=== PATIENT | female | born 2000 | race Caucasian/White ===

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

== ENCOUNTER 2019-02-25 10:45 | Emergency (ER) | payer BC ==
[2019-02-25] MEDS ORDERED: Ondansetron 4 MG Tab.DIS PO ONE (11:11)
[2019-02-25] MEDS ORDERED: Sucralfate Suspension 1 GM/10 ML Cup PO ONE (11:11)
--- NOTE | 2019-02-25 13:45 | EDM.PDOC ---
ED HPI GENERAL MEDICAL PROBLEM - General Chief Complaint: RFP WRITER Problem Stated Complaint: STOMACH Time Seen by Provider: 02/25/19 13:45 Source of Information: Reports: Patient History Limitations: Reports: No Limitations - History of Present Illness INITIAL COMMENTS - FREE TEXT/NARRATIVE: Patient is a 18-year-old female with a history of being 36 weeks patient is here complaining of nausea and vomiting. Duration of symptoms have been during the entire . Patient is been instructed to take Zofran but has been noncompliant with concerns about defects. Patient states the symptoms worsened over the past few days. Patient denies any fevers, chills , diarrhea, abdominal pain. Patient does report some burning in her epigastric region and into her throat. 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 In addition to that documented in the HPI above, the additional ROS was obtained : Constitutional: Denies fevers or chills Eyes: Denies vision changes ENMT: Denies sore throat CV: Denies chest pain Resp: Denies SOB GI: Per HPI : Denies painful urination MSK: Denies recent trauma Skin: Denies new rashes Neuro: Denies new numbness or tingling or weakness Endocrine: Denies unexpected weight loss Heme: Denies bleeding disorders I have reviewed the triage vital signs Const: Well nourished, well developed, appears stated age Eyes: PERRL, no conjunctival injection HENT: NCAT, Neck supple without meningismus . Moist mucous membranes CV: RRR, Warm, well-perfused extremities RESP: CTAB, Unlabored respiratory effort GI: Uterine fundus palpated subxiphoid. Soft nontender abdomen non-distended, no masses MSK: No gross deformities appreciated Skin: Warm, dry. 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 Sensation and motor function of extremities grossly intact. Psych: Appropriate mood and affect Assessment and plan Patient is a 18-year-old female presenting with nausea vomiting during . Patient will receive oral medications as she does not geared to be clinically dehydrated and has a normal physical exam. Patient will undergo urinalysis to check for evidence of dehydration and for presence of ketones. After evaluation, patient is tolerating some p.o. and her urine is negative for evidence of dehydration or ketonuria. Case discussed with RFP WRITER who agreed with plan about following up tomorrow in their clinic. Patient was urged to take Zofran as needed for nausea. - Related Data Allergies Allergy/AdvReac Type Severity Reaction Status Date / Time No Known Allergies Allergy Verified 03/30/17 20:47 Home Meds: Home Meds Nitrofurantoin Macrocrystal [Nitrofurantoin] 100 mg PO BID #6 capsule 02/25/19 [ Rx] raNITIdine 150 mg PO ONETIME #30 cap 02/25/19 [Rx] Past Medical History - Past Health History Medical/Surgical History: Denies Medical/Surgical History RFP WRITER History: Reports: Social & Family History - Family History Family Medical History: Noncontributory - Tobacco Use Smoking Status *Q: Never Smoker - Caffeine Use Caffeine Use: Reports: Coffee, Energy Drinks, Soda - Recreational Drug Use Recreational Drug Use: No ED ROS GENERAL - Review of Systems Review Of Systems: See Below ED EXAM, GI/ABD - Physical Exam Exam: See Below Course - Vital Signs Last Recorded V/S: Last Vital Signs Temp 36.9 C 02/25/19 13:23 Pulse 88 02/25/19 13:23 Resp 18 02/25/19 10:54 BP 124/79 02/25/19 13:23 Pulse Ox 98 02/25/19 13:23 - Orders/Labs/Meds Orders: Active Orders 24 hr Category Date Time Status CULTURE URINE [RM] Stat Lab 02/25/19 12:37 Received Labs: Laboratory Tests 02/25/19 Range/Units 12:37 Urine Color YELLOW Urine Appearance CLEAR Urine pH 7.0 (5.0-8.0) Ur Specific [place] 1.015 (1.001-1.035) Urine Protein NEGATIVE (NEGATIVE) mg/dL Urine Glucose (UA) NEGATIVE (NEGATIVE) mg/dL Urine Ketones NEGATIVE (NEGATIVE) mg/dL Urine Occult Blood NEGATIVE (NEGATIVE) Urine Nitrite NEGATIVE (NEGATIVE) Urine Bilirubin NEGATIVE (NEGATIVE) Urine Urobilinogen 0.2 (<2.0) EU/dL Ur Leukocyte Esterase TRACE H (NEGATIVE) Urine RBC 0-1 (0-2/HPF) Urine WBC 0-1 (0-5/HPF) Ur Epithelial Cells FEW (NONE-FEW) Urine Bacteria FEW (NEGATIVE) Meds: Medications Discontinued Medications Generic Name Dose Route Start Last Admin Trade Name Freq PRN Reason Stop Dose Admin Ondansetron HCl 4 mg 02/25/19 11:11 02/25/19 11:42 Zofran Odt PO 02/25/19 11:12 4 mg ONETIME ONE Administration Sucralfate 1 gm 02/25/19 11:11 02/25/19 11:42 Carafate PO 02/25/19 11:12 1 gm ONETIME ONE Administration Departure - Departure Time of Disposition: 13:50 Disposition: Home, Self-Care 01 Clinical Impression: Nausea and vomiting during - Discharge Information Prescriptions: Nitrofurantoin Macrocrystal [Nitrofurantoin] 100 mg PO BID #6 capsule raNITIdine 150 mg PO ONETIME #30 cap Instructions: Nausea and Vomiting, Adult Referrals: Amado Britton MD [Primary Care Provider] - Forms: ED Department Discharge Sepsis Event Note - Evaluation Sepsis Screening Result: No Definite Risk - Focused Exam Vital Signs: Vital Signs Temp Pulse Resp BP Pulse Ox 02/25/19 13:23 36.9 C 88 124/79 98 02/25/19 10:54 36.0 C 90 18 124/74 98 Date Exam was Performed: 02/25/19 Time Exam was Performed: 17:53 - My Orders Last 24 Hours: My Active Orders 02/25/19 12:37 CULTURE URINE [RM] Stat - Assessment/Plan Last 24 Hours: My Active Orders 02/25/19 12:37 CULTURE URINE [RM] Stat
== END 2019-02-25 14:09 | disposition home or self-care (01) ==
LOC: MW.ED 10:45
DX: O21.2 Late vomiting of pregnancy (principal); Z3A.36 36 weeks gestation of pregnancy
CPT/HCPCS: 81001; 87086; 99284; A9270; 99283

== ENCOUNTER 2019-03-05 10:20 | Inpatient (IN) | payer BC ==
[2019-03-05] MEDS ORDERED: Carboprost Tromethamine 250 MCG/1 ML Amp IM PRN (13:45)
[2019-03-05] MEDS ORDERED: Tranexamic Acid 1,000 MG in Sodium Chloride 0.9% 100 ML IV PRN (13:45)
[2019-03-05] MEDS ORDERED: Methylergonovine 0.2 MG/1 ML Amp IM PRN (13:45)
[2019-03-05] MEDS ORDERED: Sodium Chloride 0.9% 10 ML Syringe FLUSH PRN (13:45)
[2019-03-05] MEDS ORDERED: Water For Irrigation,Sterile 1,000 ML Container IRR PRN (13:45)
[2019-03-05] MEDS ORDERED: Butorphanol 1 MG/ML SDV IVPUSH PRN (13:45)
[2019-03-05] MEDS ORDERED: Lidocaine 1% 50 ML MDV INJECT PRN (13:45)
[2019-03-05] MEDS ORDERED: Sodium Chloride 0.9% 2.5 ML Syringe FLUSH PRN (13:45)
[2019-03-05] MEDS ORDERED: Lactated Ringers 1,000 ML IV SCH (13:45)
[2019-03-05] MEDS ORDERED: Oxytocin/0.9 % Sodium Chloride 30 UNIT/500 ML BAG IV SCH (13:45)
[2019-03-05] MEDS ORDERED: Misoprostol 200 MCG Tab PO PRN (13:45)
[2019-03-05] MEDS ORDERED: Sodium Chloride 0.9% 10 ML SDV IV PRN (13:45)
[2019-03-05] MEDS ORDERED: Nalbuphine 10 MG/1 ML Vial IVPUSH PRN (13:45)
[2019-03-05] MEDS ORDERED: Ampicillin 2 GM in Sodium Chloride 0.9% 100 ML IV ONE (14:00)
[2019-03-05] MEDS ORDERED: fentaNYL 100 MCG/2 ML SDV ONE (14:27)
[2019-03-05] MEDS ORDERED: Ropivacaine HCl/PF 100 ML ONE (14:27)
--- NOTE | 2019-03-05 14:47 | PCM.PREANE ---
Preanesthetic Assessment - Anesthesia/Transfusion/Family Hx Anesthesia History: No Prior Anesthesia Family History of Anesthesia Reaction: No - Physical Assessment NPO Status Date: 03/05/19 NPO Status Time: 09:00 Height: 1.68 m Weight: 71.668 kg ASA Class: 1 - Lab Values: Laboratory Last Values WBC 20.09 K/uL (4.0-11.0) H 03/05/19 14:23 RBC 4.04 M/uL (4.30-5.90) L 03/05/19 14:23 Hgb 10.4 g/dL (12.0-16.0) L 03/05/19 14:23 Hct 31.8 % (36.0-46.0) L 03/05/19 14:23 MCV 78.7 fL (80.0-98.0) L 03/05/19 14:23 MCH 25.7 pg (27.0-32.0) L 03/05/19 14:23 MCHC 32.7 g/dL (31.0-37.0) 03/05/19 14:23 RDW Std Deviation 39.7 fl (28.0-62.0) 03/05/19 14:23 RDW Coeff of Rosy 14 % (11.0-15.0) 03/05/19 14:23 Plt Count 256 K/uL (150-400) 03/05/19 14:23 MPV 10.50 fL (7.40-12.00) 03/05/19 14:23 Nucleated RBC % 0.0 /100WBC 03/05/19 14: Nucleated RBCs # 0 K/uL 03/05/19 14:23 Urine Color YELLOW 03/05/19 10:45 Urine Appearance HAZY 03/05/19 10:45 Urine pH 5.5 (5.0-8.0) 03/05/19 10:45 Ur Specific [place] 1.010 (1.001-1.035) 03/05/19 10:45 Urine Protein NEGATIVE mg/dL (NEGATIVE) 03/05/19 10:45 Urine Glucose (UA) NEGATIVE mg/dL (NEGATIVE) 03/05/19 10:45 Urine Ketones NEGATIVE mg/dL (NEGATIVE) 03/05/19 10:45 Urine Occult Blood NEGATIVE (NEGATIVE) 03/05/19 10:45 Urine Nitrite NEGATIVE (NEGATIVE) 03/05/19 10:45 Urine Bilirubin NEGATIVE (NEGATIVE) 03/05/19 10:45 Urine Urobilinogen 0.2 EU/dL (<2.0) 03/05/19 10:45 Ur Leukocyte Esterase MODERATE (NEGATIVE) H 03/05/19 10:45 Membrane Rupture NEGATIVE 03/05/19 10:40 - Allergies Allergies/Adverse Reactions: Allergies Allergy/AdvReac Type Severity Reaction Status Date / Time No Known Allergies Allergy Verified 03/05/19 10:48 - Acknowledgements Anesthesia Type Planned: Epidural Pt an Appropriate Candidate for the Planned Anesthesia: Yes Alternatives and Risks of Anesthesia Discussed w Pt/Guardian: Yes Pt/Guardian Understands and Agrees with Anesthesia Plan: Yes PreAnesthesia Questionnaire - Past Health History Medical/Surgical History: Denies Medical/Surgical History [employer] History: Reports: - SUBSTANCE USE Smoking Status *Q: Former Smoker Tobacco Use Within Last Twelve Months: Cigarettes Second Hand Smoke Exposure: No Recreational Drug Use History: No - HOME MEDS Home Medications: Home Meds Nitrofurantoin Macrocrystal [Nitrofurantoin] 100 mg PO BID #6 capsule 02/25/19 [ Rx] raNITIdine 150 mg PO ONETIME #30 cap 02/25/19 [Rx] Ondansetron [Zofran ODT] 4 mg PO Q6H PRN 03/05/19 [History] - CURRENT (IN HOUSE) MEDS Current Meds: Current Medications Butorphanol Tartrate (Stadol) 1 mg IVPUSH Q1H PRN PRN Reason: Pain Last Admin: 03/05/19 14:24 Dose: 1 mg Carboprost Tromethamine (Hemabate Ds) 250 mcg IM ASDIRECTED PRN PRN Reason: Post Hemorrhage Lactated Ringer's (Ringers, Lactated) 1,000 mls @ 150 mls/hr IV ASDIRECTED RICARDO Last Admin: 03/05/19 14:10 Dose: 150 mls/hr Oxytocin/Sodium Chloride (Oxytocin 30 Unit/500 Ml-Ns) 30 unit in 500 mls @ 500 mls/hr IV TITRATE RICARDO Tranexamic Acid 1,000 mg/ (Sodium Chloride) 110 mls @ 660 mls/hr IV ONETIME PRN PRN Reason: Bleeding Lidocaine HCl (Xylocaine 1%) 50 ml INJECT ONETIME PRN PRN Reason: Laceration repair Methylergonovine Maleate (Methergine) 0.2 mg IM ASDIRECTED PRN PRN Reason: Post Hemorrhage Misoprostol (Cytotec) 200 mcg PO ONETIME PRN PRN Reason: Post Hemorrhage Nalbuphine HCl (Nubain) 10 mg IVPUSH Q1H PRN PRN Reason: Pain (severe 7-10) Sodium Chloride (Saline Flush) 10 ml FLUSH ASDIRECTED PRN PRN Reason: Keep Vein Open Sodium Chloride (Saline Flush) 2.5 ml FLUSH ASDIRECTED PRN PRN Reason: Keep Vein Open Sodium Chloride (Normal Saline) 10 ml IV ASDIRECTED PRN PRN Reason: IV Use Sterile Water (Sterile Water For Irrigation) 1,000 ml IRR ASDIRECTED PRN PRN Reason: delivery Discontinued Medications Fentanyl (Sublimaze) Confirm Administered Dose 100 mcg .ROUTE .STK-MED ONE Stop: 03/05/19 14:28 Ampicillin Sodium 2 gm/ Sodium (Chloride) 100 mls @ 200 mls/hr IV ONETIME ONE Stop: 03/05/19 14:29 Last Admin: 03/05/19 14:10 Dose: 200 mls/hr Ropivacaine (Naropin 0.2%) Confirm Administered Dose 100 mls @ as directed .ROUTE .STK-MED ONE Stop: 03/05/19 14:28
--- NOTE | 2019-03-05 14:51 | PCM.PRNOTE ---
- Free Text/Narrative Note: Anes Note Patient requests epidural for L&D> Sitting position, level L3-L4 midline approach. Sterile technique. Chloraprep scrub to lumbar area. Sterile fenestrated drape applied. Epidural space easily achieved single attempt with ease using MELINDA technique. MELINDA at 3 cm. Cath threaded 5 cm with ease. Cath secured at 9 cm at skin usign sterile clear adhesive dressing. 1440 Test 3 cc 1.5% lido with epi negative. 1443 Load 10 cc 0.2% ropivicaine with 1 mcg/cc fentanyl in slow divided doses. 1447 pumps started with 90 cc same solution. Rate is 8 cc hr with 6 cc q 20 min prn bolus. Angela well. Time with patient [id number] Mark Rasmussen CRNA
--- NOTE | 2019-03-05 15:44 | PCM.DEL ---
L & D Note - General Info Date of Service: 03/05/19 Mother's Due Date: 03/27/19 - Delivery Note Delivery Outcome: Livebirth Infant Delivery Method: Spontaneous Vaginal Delivery-Single Presentation: Left Occiput Anterior (JYOTHI) Nuchal Cord: None Anesthesia Type: Epidural Laceration: Labial Placenta: Intact Cord: 3 Vessels Estimated Blood Loss: 200 Resuscitation Needed: No Score 1 min: 8 Score 5 min: 9 Delivery Comments (Free Text/Narrative):: Live female delivered at 322pm , 8/9 , weight 2480g - General Info Date of Service: 03/05/19 - Patient Data Weight - Most Recent: 71.668 kg Lab Results Last 24 Hours: Laboratory Results - last 24 hr 03/05/19 03/05/19 03/05/19 Range/Units 10:40 10:45 14:23 WBC 20.09 H (4.0-11.0) K/uL RBC 4.04 L (4.30-5.90) M/uL Hgb 10.4 L (12.0-16.0) g/dL Hct 31.8 L (36.0-46.0) % MCV 78.7 L (80.0-98.0) fL MCH 25.7 L (27.0-32.0) pg MCHC 32.7 (31.0-37.0) g/dL RDW Std Deviation 39.7 (28.0-62.0) fl RDW Coeff of Rosy 14 (11.0-15.0) % Plt Count 256 (150-400) K/uL MPV 10.50 (7.40-12.00) fL Nucleated RBC % 0.0 /100WBC Nucleated RBCs # 0 K/uL Urine Color YELLOW Urine Appearance HAZY Urine pH 5.5 (5.0-8.0) Ur Specific [place] 1.010 (1.001-1.035) Urine Protein NEGATIVE (NEGATIVE) mg/dL Urine Glucose (UA) NEGATIVE (NEGATIVE) mg/dL Urine Ketones NEGATIVE (NEGATIVE) mg/dL Urine Occult Blood NEGATIVE (NEGATIVE) Urine Nitrite NEGATIVE (NEGATIVE) Urine Bilirubin NEGATIVE (NEGATIVE) Urine Urobilinogen 0.2 (<2.0) EU/dL Ur Leukocyte Esterase MODERATE H (NEGATIVE) Membrane Rupture NEGATIVE Med Orders - Current: Current Medications Butorphanol Tartrate (Stadol) 1 mg IVPUSH Q1H PRN PRN Reason: Pain Last Admin: 03/05/19 14:24 Dose: 1 mg Carboprost Tromethamine (Hemabate Ds) 250 mcg IM ASDIRECTED PRN PRN Reason: Post Hemorrhage Lactated Ringer's (Ringers, Lactated) 1,000 mls @ 150 mls/hr IV ASDIRECTED RICARDO Last Admin: 03/05/19 14:10 Dose: 150 mls/hr Oxytocin/Sodium Chloride (Oxytocin 30 Unit/500 Ml-Ns) 30 unit in 500 mls @ 500 mls/hr IV TITRATE RICARDO Tranexamic Acid 1,000 mg/ (Sodium Chloride) 110 mls @ 660 mls/hr IV ONETIME PRN PRN Reason: Bleeding Lidocaine HCl (Xylocaine 1%) 50 ml INJECT ONETIME PRN PRN Reason: Laceration repair Methylergonovine Maleate (Methergine) 0.2 mg IM ASDIRECTED PRN PRN Reason: Post Hemorrhage Misoprostol (Cytotec) 200 mcg PO ONETIME PRN PRN Reason: Post Hemorrhage Nalbuphine HCl (Nubain) 10 mg IVPUSH Q1H PRN PRN Reason: Pain (severe 7-10) Sodium Chloride (Saline Flush) 10 ml FLUSH ASDIRECTED PRN PRN Reason: Keep Vein Open Sodium Chloride (Saline Flush) 2.5 ml FLUSH ASDIRECTED PRN PRN Reason: Keep Vein Open Sodium Chloride (Normal Saline) 10 ml IV ASDIRECTED PRN PRN Reason: IV Use Sterile Water (Sterile Water For Irrigation) 1,000 ml IRR ASDIRECTED PRN PRN Reason: delivery Discontinued Medications Fentanyl (Sublimaze) Confirm Administered Dose 100 mcg .ROUTE .[employer]Workings-MED ONE Stop: 03/05/19 14:28 Ampicillin Sodium 2 gm/ Sodium (Chloride) 100 mls @ 200 mls/hr IV ONETIME ONE Stop: 03/05/19 14:29 Last Admin: 03/05/19 14:10 Dose: 200 mls/hr Ropivacaine (Naropin 0.2%) Confirm Administered Dose 100 mls @ as directed .ROUTE .InnerWorkings-MED ONE Stop: 03/05/19 14:28 - Problem List & Annotations (1) Vaginal delivery SNOMED Code(s): 926544374 Code(s): O80 - ENCOUNTER FOR FULL-TERM UNCOMPLICATED DELIVERY Status: Acute Current Visit: Yes - Problem List Review Problem List Initiated/Reviewed/Updated: Yes - My Orders Last 24 Hours: My Active Orders 03/05/19 10:49 Patient Status [ADT] Routine Non Stress Test [RC] PER UNIT ROUTINE Up ad Janina [RC] ASDIRECTED Vaginal Exam [RC] Click to Edit Vital Signs [RC] PER UNIT ROUTINE Resuscitation Status Routine 03/05/19 13:45 Butorphanol [Stadol] 1 mg IVPUSH Q1H PRN Carboprost Tromethamine [Hemabate DS] 250 mcg IM ASDIRECTED PRN Lactated Ringers [Ringers, Lactated] 1,000 ml IV ASDIRECTED Lidocaine 1% [Xylocaine 1%] 50 ml INJECT ONETIME PRN Methylergonovine [Methergine] 0.2 mg IM ASDIRECTED PRN Nalbuphine [Nubain] 10 mg IVPUSH Q1H PRN Oxytocin/0.9 % Sodium Chloride [Oxytocin 30 Unit/500 ML-NS] 30 unit in 500 ml IV TITRATE Sodium Chloride 0.9% [Normal Saline] 10 ml IV ASDIRECTED PRN Sodium Chloride 0.9% [Saline Flush] 10 ml FLUSH ASDIRECTED PRN Sodium Chloride 0.9% [Saline Flush] 2.5 ml FLUSH ASDIRECTED PRN Tranexamic Acid [Cyklokapron] 1,000 mg Sodium Chloride 0.9% [Normal Saline] 100 ml IV ONETIME Water For Irrigation,Sterile [Sterile Water for Irrigation] 1,000 ml IRR ASDIRECTED PRN miSOPROStoL [Cytotec] 200 mcg PO ONETIME PRN 03/05/19 13:46 Patient Status [ADT] Routine Heart Tones [RC] CONTINUOUS May Shower [RC] ASDIRECTED Notify Provider [RC] PRN Up ad Janina [RC] ASDIRECTED Vaginal Exam [RC] PRN Vital Signs [RC] PER UNIT ROUTINE Scalp Electrode [WOMSER] Per Unit Routine Peripheral IV Insertion Adult [OM.PC] Routine 03/05/19 14:23 RPR (SYPHILIS SERO) W/ RFLX [REF] Routine TYPE AND SCREEN [BBK] Routine
[2019-03-05] MEDS ORDERED: Ibuprofen 800 MG Tab PO PRN (15:45)
[2019-03-05] MEDS ORDERED: Ibuprofen 400 MG Tab PO PRN (15:45)
[2019-03-05] MEDS ORDERED: oxyCODONE 5 MG Tab PO PRN (15:45)
[2019-03-05] MEDS ORDERED: Benzocaine/Menthol 20%-0.5% Spray 78 GM Cannister TOP PRN (15:45)
[2019-03-05] MEDS ORDERED: Docusate Sodium 100 MG Cap PO PRN (15:45)
[2019-03-05] MEDS ORDERED: Witch Hazel Medicated Pads 40/Jar TOP PRN (15:45)
[2019-03-05] MEDS ORDERED: Bisacodyl 10 MG Supp RECTAL PRN (15:45)
[2019-03-05] MEDS ORDERED: Acetaminophen 500 MG Tab PO PRN ×2 (15:45)
[2019-03-05] MEDS ORDERED: Lanolin 100% Cream 7 GM Tube TOP PRN (15:45)
[2019-03-05] MEDS ORDERED: Ampicillin/Sulbactam Na 3 GM in Sodium Chloride 0.9% 100 ML IV ONE (17:00)
--- NOTE | 2019-03-06 08:43 | PCM48HPAN ---
Post Anesthesia Note - EVALUATION WITHIN 48HRS OF ANESTHETIC Vital Signs in Normal Range: Yes Patient Participated in Evaluation: Yes Respiratory Function Stable: Yes Airway Patent: Yes Cardiovascular Function Stable: Yes Hydration Status Stable: Yes Pain Control Satisfactory: Yes Nausea and Vomiting Control Satisfactory: Yes Mental Status Recovered: Yes Vital Signs: Last Vital Signs Temp 36.8 C 03/06/19 04:15 Pulse 98 03/06/19 04:15 Resp 18 03/06/19 04:15 BP 118/75 03/06/19 04:15 Pulse Ox 96 03/06/19 04:15
--- NOTE | 2019-03-06 18:08 | OR ---
SURGEON: VINCE HAWTHORNE DATE OF PROCEDURE: 03/05/2019 PREOPERATIVE DIAGNOSIS: A 18-year-old, G1, P0, at 36 weeks 6 days in early labor. POSTOPERATIVE DIAGNOSIS: A 18-year-old, G1, P0, at 36 weeks 6 days in early labor. PROCEDURE: Normal spontaneous vaginal delivery and manual removal of the placenta. IV FLUID: Pitocin running. ANESTHESIA: Epidural. NOTES AND FINDINGS: A live female delivered at 3:22 p.m. scores 8 and 9. Weight is 2480 g. BRIEF HISTORY: A 18-year-old, G1, P0, at 36 weeks 6 days. Low-risk patient who came in complaining of leakage of fluid. She was noted to have AmniSure negative. However, she was noted to be gabriel, and she made change from about 3 cm to 5, then became fully dilated. She requested an epidural which she received When the patient was fully dilated, she was encouraged to push. DESCRIPTION OF PROCEDURE: With good pushing effort, she delivered the head, followed subsequently by the anterior and posterior shoulder. The body of the was delivered. was placed on maternal abdomen. Delayed cord clamping was observed. Cord was clamped and cut. The cord blood gases were obtained. The placenta was attempted to be delivered, however, there was a slight tear in the cord, so a manual removal was proceeded with without any difficulty. After the procedure, the perineum was inspected. A small right labial abrasion was noted, which was hemostatic. The uterus was noted to be well contracted. The lochia was normal. All instrument and pad counts were correct x2. The patient tolerated the procedure well and was left in the Labor and Delivery Suite in stable condition. LOKESH / GERTRUDE /[id number] TANIA
--- NOTE | 2019-03-06 18:56 | PCM.PNPP ---
- General Info Date of Service: 03/06/19 Subjective Update: Patient seen at bedside , she denies any complains She is ambulating and voiding She is and pumping Normal lochia Functional Status: Reports: Pain Controlled, Tolerating Diet, Ambulating, Urinating - Review of Systems General: Reports: No Symptoms HEENT: Reports: No Symptoms Pulmonary: Reports: No Symptoms Cardiovascular: Reports: No Symptoms Gastrointestinal: Reports: No Symptoms Genitourinary: Reports: No Symptoms Musculoskeletal: Reports: No Symptoms Skin: Reports: No Symptoms Neurological: Reports: No Symptoms Psychiatric: Reports: No Symptoms - General Info Date of Service: 03/06/19 - Patient Data Vital Signs - Most Recent: Last Vital Signs Temp 36.3 C 03/06/19 16:56 Pulse 104 H 03/06/19 16:56 Resp 18 03/06/19 16:56 BP 114/79 03/06/19 16:56 Pulse Ox 97 03/06/19 16:56 Weight - Most Recent: 71.668 kg Lab Results - Last 24 Hours: Laboratory Results - last 24 hr 03/05/19 03/05/19 03/06/19 Range/Units 15:22 15:22 05:54 Hgb 10.2 L (12.0-16.0) g/dL Hct 31.6 L (36.0-46.0) % Cord ABG pH 7.167 L (7.18-7.38) Cord ABG Base Excess -8 (-10--2) Cord VBG pH 7.310 (7.25-7.45) Cord VBG Base Excess -8 (-10--2) Med Orders - Current: Current Medications Acetaminophen (Tylenol Extra Strength) 500 mg PO Q4H PRN PRN Reason: Pain Acetaminophen (Tylenol Extra Strength) 1,000 mg PO Q4H PRN PRN Reason: Pain Benzocaine/Menthol (Dermoplast Pain Relief 20%-0.5% [place]) 78 gm TOP ASDIRECTED PRN PRN Reason: Perineal Comfort Measure Bisacodyl (Dulcolax) 10 mg RECTAL ONETIME PRN PRN Reason: Constipation Butorphanol Tartrate (Stadol) 1 mg IVPUSH Q1H PRN PRN Reason: Pain Last Admin: 03/05/19 14:24 Dose: 1 mg Carboprost Tromethamine (Hemabate Ds) 250 mcg IM ASDIRECTED PRN PRN Reason: Post Hemorrhage Docusate Sodium (Colace) 100 mg PO BID PRN PRN Reason: Constipation Emollient Ointment (Lansinoh Hpa) 0 gm TOP ASDIRECTED PRN PRN Reason: Sore Nipples Lactated Ringer's (Ringers, Lactated) 1,000 mls @ 150 mls/hr IV ASDIRECTED [facility] Last Admin: 03/05/19 14:10 Dose: 150 mls/hr Oxytocin/Sodium Chloride (Oxytocin 30 Unit/500 Ml-Ns) 30 unit in 500 mls @ 500 mls/hr IV TITRATE [facility] Last Admin: 03/05/19 15:47 Dose: 500 mls/hr Tranexamic Acid 1,000 mg/ (Sodium Chloride) 110 mls @ 660 mls/hr IV ONETIME PRN PRN Reason: Bleeding Ibuprofen (Motrin) 400 mg PO Q4H PRN PRN Reason: Pain Ibuprofen (Motrin) 800 mg PO Q6H PRN PRN Reason: Pain Lidocaine HCl (Xylocaine 1%) 50 ml INJECT ONETIME PRN PRN Reason: Laceration repair Methylergonovine Maleate (Methergine) 0.2 mg IM ASDIRECTED PRN PRN Reason: Post Hemorrhage Misoprostol (Cytotec) 200 mcg PO ONETIME PRN PRN Reason: Post Hemorrhage Nalbuphine HCl (Nubain) 10 mg IVPUSH Q1H PRN PRN Reason: Pain (severe 7-10) Oxycodone HCl (Oxycodone) 5 mg PO Q2H PRN PRN Reason: Pain Sodium Chloride (Saline Flush) 10 ml FLUSH ASDIRECTED PRN PRN Reason: Keep Vein Open Sodium Chloride (Saline Flush) 2.5 ml FLUSH ASDIRECTED PRN PRN Reason: Keep Vein Open Sodium Chloride (Normal Saline) 10 ml IV ASDIRECTED PRN PRN Reason: IV Use Sterile Water (Sterile Water For Irrigation) 1,000 ml IRR ASDIRECTED PRN PRN Reason: delivery Last Admin: 03/05/19 15:47 Dose: 1,000 ml Witch Petty (Tucks) 1 pad TOP ASDIRECTED PRN PRN Reason: comfort care Discontinued Medications Fentanyl (Sublimaze) Confirm Administered Dose 100 mcg .ROUTE .STK-MED ONE Stop: 03/05/19 14:28 Ampicillin Sodium 2 gm/ Sodium (Chloride) 100 mls @ 200 mls/hr IV ONETIME ONE Stop: 03/05/19 14:29 Last Admin: 03/05/19 14:10 Dose: 200 mls/hr Ropivacaine (Naropin 0.2%) Confirm Administered Dose 100 mls @ as directed .ROUTE .STK-MED ONE Stop: 03/05/19 14:28 Ampicillin Sodium/Sulbactam (Sodium 3 gm/ Sodium Chloride) 100 mls @ 200 mls/ hr IV ONETIME ONE Stop: 03/05/19 17:29 Last Admin: 03/05/19 17:15 Dose: 200 mls/hr - Interaction Support Person: Significant Other - Recovery Exam Fundal Tone: Firm Fundal Level: 1 Fingerbreadths Below Umbilicus Fundal Placement: Midline Lochia Amount: Scant Lochia Color: Rubra/Red Perineum Description: Intact, Minimal Bruising/Swelling Episiotomy/Laceration: None Bladder Status: Voiding Urinary Elimination: Voided - Exam General: Alert, Oriented HEENT: Pupils Equal Lungs: Clear to Auscultation Cardiovascular: Regular Rate GI/Abdominal Exam: Normal Bowel Sounds Extremities: Normal Inspection Skin: Warm Wound/Incisions: Healing Well - Problem List & Annotations (1) Vaginal delivery SNOMED Code(s): 708410625 Code(s): O80 - ENCOUNTER FOR FULL-TERM UNCOMPLICATED DELIVERY Status: Acute Current Visit: Yes - Problem List Review Problem List Initiated/Reviewed/Updated: Yes - Assessment Assessment:: 18yo P1 s/p delivery with Manual removal of placenta , PPD1 Ambulating . voiding Normal lochia and pumping, on IVF fluid - Plan Plan:: Routine DIscharge home tomorrow
--- NOTE | 2019-03-07 17:14 | PCM.PNPP ---
- General Info Date of Service: 03/07/19 Subjective Update: Patient seen in nursery, she denies any complains She is ambulating and voiding She is and pumping Normal lochia Functional Status: Reports: Pain Controlled, Tolerating Diet, Ambulating, Urinating - Review of Systems General: Reports: No Symptoms HEENT: Reports: No Symptoms Pulmonary: Reports: No Symptoms Cardiovascular: Reports: No Symptoms Gastrointestinal: Reports: No Symptoms Genitourinary: Reports: No Symptoms Musculoskeletal: Reports: No Symptoms Skin: Reports: No Symptoms Neurological: Reports: No Symptoms Psychiatric: Reports: No Symptoms - Patient Data Vital Signs - Most Recent: Last Vital Signs Temp 36.6 C 03/07/19 08:15 Pulse 91 03/07/19 08:15 Resp 18 03/07/19 08:15 BP 124/76 03/07/19 08:15 Pulse Ox 99 03/07/19 08:15 Weight - Most Recent: 71.668 kg Lab Results - Last 24 Hours: Laboratory Results - last 24 hr 03/05/19 03/05/19 03/05/19 Range/Units 14:23 15:22 15:22 Cord ABG pH 7.167 L (7.18-7.38) Cord ABG Base Excess -8 (-10--2) Cord VBG pH 7.310 (7.25-7.45) Cord VBG Base Excess -8 (-10--2) RPR Non-Reac (Non-Reac) Med Orders - Current: Current Medications Acetaminophen (Tylenol Extra Strength) 500 mg PO Q4H PRN PRN Reason: Pain Acetaminophen (Tylenol Extra Strength) 1,000 mg PO Q4H PRN PRN Reason: Pain Benzocaine/Menthol (Dermoplast Pain Relief 20%-0.5% [place]) 78 gm TOP ASDIRECTED PRN PRN Reason: Perineal Comfort Measure Bisacodyl (Dulcolax) 10 mg RECTAL ONETIME PRN PRN Reason: Constipation Carboprost Tromethamine (Hemabate Ds) 250 mcg IM ASDIRECTED PRN PRN Reason: Post Hemorrhage Docusate Sodium (Colace) 100 mg PO BID PRN PRN Reason: Constipation Emollient Ointment (Lansinoh Hpa) 0 gm TOP ASDIRECTED PRN PRN Reason: Sore Nipples Tranexamic Acid 1,000 mg/ (Sodium Chloride) 110 mls @ 660 mls/hr IV ONETIME PRN PRN Reason: Bleeding Ibuprofen (Motrin) 400 mg PO Q4H PRN PRN Reason: Pain Last Admin: 03/07/19 11:38 Dose: 400 mg Ibuprofen (Motrin) 800 mg PO Q6H PRN PRN Reason: Pain Methylergonovine Maleate (Methergine) 0.2 mg IM ASDIRECTED PRN PRN Reason: Post Hemorrhage Misoprostol (Cytotec) 200 mcg PO ONETIME PRN PRN Reason: Post Hemorrhage Oxycodone HCl (Oxycodone) 5 mg PO Q2H PRN PRN Reason: Pain Sodium Chloride (Saline Flush) 10 ml FLUSH ASDIRECTED PRN PRN Reason: Keep Vein Open Sodium Chloride (Saline Flush) 2.5 ml FLUSH ASDIRECTED PRN PRN Reason: Keep Vein Open Sodium Chloride (Normal Saline) 10 ml IV ASDIRECTED PRN PRN Reason: IV Use Witch Petty (Tucks) 1 pad TOP ASDIRECTED PRN PRN Reason: comfort care Discontinued Medications Butorphanol Tartrate (Stadol) 1 mg IVPUSH Q1H PRN PRN Reason: Pain Last Admin: 03/05/19 14:24 Dose: 1 mg Fentanyl (Sublimaze) Confirm Administered Dose 100 mcg .ROUTE .STK-MED ONE Stop: 03/05/19 14:28 Lactated Ringer's (Ringers, Lactated) 1,000 mls @ 150 mls/hr IV ASDIRECTED [facility] Last Admin: 03/05/19 14:10 Dose: 150 mls/hr Oxytocin/Sodium Chloride (Oxytocin 30 Unit/500 Ml-Ns) 30 unit in 500 mls @ 500 mls/hr IV TITRATE [facility] Last Admin: 03/05/19 15:47 Dose: 500 mls/hr Ampicillin Sodium 2 gm/ Sodium (Chloride) 100 mls @ 200 mls/hr IV ONETIME ONE Stop: 03/05/19 14:29 Last Admin: 03/05/19 14:10 Dose: 200 mls/hr Ropivacaine (Naropin 0.2%) Confirm Administered Dose 100 mls @ as directed .ROUTE .STK-MED ONE Stop: 03/05/19 14:28 Ampicillin Sodium/Sulbactam (Sodium 3 gm/ Sodium Chloride) 100 mls @ 200 mls/ hr IV ONETIME ONE Stop: 03/05/19 17:29 Last Admin: 03/05/19 17:15 Dose: 200 mls/hr Lidocaine HCl (Xylocaine 1%) 50 ml INJECT ONETIME PRN PRN Reason: Laceration repair Nalbuphine HCl (Nubain) 10 mg IVPUSH Q1H PRN PRN Reason: Pain (severe 7-10) Sterile Water (Sterile Water For Irrigation) 1,000 ml IRR ASDIRECTED PRN PRN Reason: delivery Last Admin: 03/05/19 15:47 Dose: 1,000 ml - Interaction Infant Disposition, : to Nursery Infant Interaction: Holding Infant Infant Feeding: Attempted ; Nursed Fair/Poor, Bottle Fed Infant Support Person: Significant Other - Recovery Exam Fundal Tone: Firm Fundal Level: 1 Fingerbreadths Below Umbilicus Fundal Placement: Midline Lochia Amount: Scant Lochia Color: Rubra/Red Other Perinuem Description: abrasion Episiotomy/Laceration: None Bladder Status: Voiding Urinary Elimination: Voided - Exam General: Alert, Oriented Neck: Supple Lungs: Clear to Auscultation, Normal Respiratory Effort Cardiovascular: Regular Rate, Regular Rhythm GI/Abdominal Exam: Soft, Non-Tender, No Distention Extremities: No Pedal Edema Skin: Warm, Dry, Intact Neurological: No New Focal Deficit Psy/Mental Status: Alert, Normal Affect, Normal Mood - Problem List & Annotations (1) Vaginal delivery SNOMED Code(s): 880051210 Code(s): O80 - ENCOUNTER FOR FULL-TERM UNCOMPLICATED DELIVERY Status: Acute Current Visit: Yes - Problem List Review Problem List Initiated/Reviewed/Updated: Yes - My Orders Last 24 Hours: My Active Orders 03/07/19 17:12 Ready for Discharge [RC] PER UNIT ROUTINE - Assessment Assessment:: 18yo P1 s/p delivery with Manual removal of placenta , PPD2 Ambulating . voiding Normal lochia and pumping, on IVF fluid - Plan Plan:: Routine Discharge home today Reviewed discharge instructions.
== END 2019-03-07 18:30 | disposition home or self-care (01) | DRG 560 ==
LOC: MW.OB 10:20 → OBSVTOIN 15:45 → MW.OB 20:04
PROVIDERS: ADMIT Obstetrics & Gynecology; ATTEND Obstetrics & Gynecology
PROC: 10E0XZZ Delivery of Products of Conception, External Approach (ICD-10-PCS; principal; 2019-03-05)
PROC: 3E0R3BZ Introduction of Anesthetic Agent into Spinal Canal, Percutaneous Approach (ICD-10-PCS; 2019-03-05)
PROC: 00HU33Z Insertion of Infusion Device into Spinal Canal, Percutaneous Approach (ICD-10-PCS; 2019-03-05)
DX: O80 Encounter for full-term uncomplicated delivery (principal); Z3A.36 36 weeks gestation of pregnancy; Z37.0 Single live birth
CPT/HCPCS: 01967; 36415; 59025; 59409; 81003; 82803; 84112; 85014; 85018; 85027; 86592; 86850; 86900; 86901; 88307; A9270-GY; J0290; J0295; J0595; J2590; J7050; J7120

== ENCOUNTER 2020-04-08 11:35 | Inpatient (IN) | payer OTHER ==
--- NOTE | 2020-04-08 12:25 | PCM.LDHP ---
L&D History of Present Illness - General Date of Service: 04/08/20 Admit Problem/Dx: Patient Status Order with Admit Dx/Problem 04/08/20 11:25 Patient Status [ADT] Routine Admission Diagnosis/Problem Admission Diagnosis/Problem Source of Information: Patient History Limitations: Reports: No Limitations - History of Present Illness Introduction:: 19 year old at 37w3d (BERNIE 04/26/2020 by 9w3d US) presented to labor and delivery with c/o vaginal bleeding. States that she had bright red vaginal bleeding with wiping at 1000 this morning and has had a small amount since that time. She was 4cm dilated at OB appointment on 04/06/2020. Notes mild back pain, no contractions or leaking fluid. Reports good movement. Has a history of delivery at 36wga and PPROM. 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: Social & Family History - Family History Family Medical History: No Pertinent Family History - Caffeine Use Caffeine Use: Reports: Soda, Tea H&P Review of Systems - Review of Systems: Review Of Systems: See Below General: Reports: No Symptoms HEENT: Reports: No Symptoms Pulmonary: Reports: No Symptoms Cardiovascular: Reports: No Symptoms Gastrointestinal: Reports: No Symptoms Genitourinary: Reports: Other (vaginal bleeding) Musculoskeletal: Reports: Back Pain Skin: Reports: No Symptoms Psychiatric: Reports: No Symptoms Neurological: Reports: No Symptoms Hematologic/Lymphatic: Reports: No Symptoms L&D Exam - Exam Exam: See Below - Vital Signs Weight: 145 lb - OB Specific Contraction Duration (sec): irregular Contraction Intensity: Mild Movement: Active Heart Tones: Present Heart Tones per Min: 130 Heart Rate (FHR) Variability: Moderate (6-25 bmp) Presentation: Vertex - Reynolds Score Reynolds Score Cervix Position: Anterior Reynolds Score Consistency: Soft Reynolds Score Effacement: >80% Reynolds Score Dilation: > 5 cm Reynolds Score Infant's Station: -2 Reynolds Score Total: 11 - Exam General: Alert Cardiovascular: Regular Rate GI/Abdominal Exam: Soft, Non-Tender Genitourinary: Normal external exam, Cervical dilitation Back Exam: Normal Inspection Extremities: Normal Inspection Skin: Warm, Dry, Intact Psychiatric: Normal Mood Problem List Initiated/Reviewed/Updated: Yes Orders Last 24hrs: Active Orders 24 hr Category Date Time Status Patient Status [ADT] Routine ADT 04/08/20 11:25 Active Non Stress Test [RC] PER UNIT ROUTINE Care 04/08/20 11:47 Active Up ad Janina [RC] ASDIRECTED Care 04/08/20 11:47 Active Vaginal Exam [RC] Click to Edit Care 04/08/20 11:47 Active Vital Signs [RC] PER UNIT ROUTINE Care 04/08/20 11:47 Active Resuscitation Status Routine Resus Stat 04/08/20 11:47 Ordered Assessment/Plan Comment:: 19 year old at 37w3d (BERNIE 04/26/2020 by 9w3d US) in spontaneous labor * Admit to labor and delivery * May receive epidural for pain management * Rh positive/rubella immune/GBS negative * COVID-19 test pending Dispo: stable. Proceed with expectant management of labor at this time.
[2020-04-08] MEDS ORDERED: Methylergonovine 0.2 MG/1 ML Amp IM PRN ×2 (12:26→19:16)
[2020-04-08] MEDS ORDERED: Sodium Chloride 0.9% 2.5 ML Syringe FLUSH PRN (12:26)
[2020-04-08] MEDS ORDERED: Carboprost Tromethamine 250 MCG/1 ML Amp IM PRN (12:26)
[2020-04-08] MEDS ORDERED: Water For Irrigation,Sterile 1,000 ML Container IRR PRN (12:26)
[2020-04-08] MEDS ORDERED: Butorphanol 1 MG/ML SDV IVPUSH PRN (12:26)
[2020-04-08] MEDS ORDERED: Sodium Chloride 0.9% 10 ML SDV IV PRN (12:26)
[2020-04-08] MEDS ORDERED: Sodium Chloride 0.9% 10 ML Syringe FLUSH PRN (12:26)
[2020-04-08] MEDS ORDERED: Misoprostol 200 MCG Tab PO PRN (12:26)
[2020-04-08] MEDS ORDERED: Tranexamic Acid 1,000 MG in Sodium Chloride 0.9% 100 ML IV PRN (12:26)
[2020-04-08] MEDS ORDERED: Nalbuphine 10 MG/1 ML Vial IVPUSH PRN (12:26)
[2020-04-08] MEDS ORDERED: Ondansetron 4 MG/2 ML SDV IVPUSH PRN (12:26)
[2020-04-08] MEDS ORDERED: Lidocaine 1% 50 ML MDV INJECT PRN (12:26)
[2020-04-08] MEDS: Lactated Ringers 1,000 ML IV SCH ×3 (12:30→15:27)
[2020-04-08] MEDS ORDERED: Oxytocin/0.9 % Sodium Chloride 30 UNIT/500 ML BAG IV SCH ×2 (12:30→18:30)
[2020-04-08] MEDS ORDERED: Ropivacaine 0.2% PF 2 MG/ML 20 ML SDV ONE (14:42)
[2020-04-08] MEDS ORDERED: fentaNYL 100 MCG/2 ML SDV ONE (14:43)
[2020-04-08] MEDS ORDERED: Ropivacaine HCl/PF 100 ML ONE (14:43)
--- NOTE | 2020-04-08 15:38 | PCM.PREANE ---
Preanesthetic Assessment - Anesthesia/Transfusion/Family Hx Anesthesia History: No Prior Anesthesia Family History of Anesthesia Reaction: No - Review of Systems General: No Symptoms Pulmonary: No Symptoms Cardiovascular: No Symptoms Gastrointestinal: No Symptoms Neurological: No Symptoms Other: Reports: None (Denies any personal or family hx of bleeding or clotting problems) - Physical Assessment Height: 1.68 m Weight: 65.771 kg ASA Class: 2 Mental Status: Alert & Oriented x3 Airway Class: Mallampati = 2 ROM/Head Extension: Full - Lab Values: Laboratory Last Values WBC 10.27 K/uL (4.0-11.0) 04/08/20 12:40 RBC 4.44 M/uL (4.30-5.90) 04/08/20 12:40 Hgb 11.9 g/dL (12.0-16.0) L 04/08/20 12:40 Hct 37.0 % (36.0-46.0) 04/08/20 12:40 MCV 83.3 fL (80.0-98.0) 04/08/20 12:40 MCH 26.8 pg (27.0-32.0) L 04/08/20 12:40 MCHC 32.2 g/dL (31.0-37.0) 04/08/20 12:40 RDW Std Deviation 65.1 fl (28.0-62.0) H 04/08/20 12:40 RDW Coeff of Rosy 22 % (11.0-15.0) H 04/08/20 12:40 Plt Count 246 K/uL (150-400) 04/08/20 12:40 MPV 10.60 fL (7.40-12.00) 04/08/20 12:40 Nucleated RBC % 0.0 /100WBC 04/08/20 12:40 Nucleated RBCs # 0 K/uL 04/08/20 12:40 SARS-CoV-2 RNA (ABHILASH) NEGATIVE (NEGATIVE) 04/08/20 13:10 Blood Type AB POSITIVE 04/08/20 12:40 Antibody Screen NEGATIVE 04/08/20 12:40 - Allergies Allergies/Adverse Reactions: Allergies Allergy/AdvReac Type Severity Reaction Status Date / Time No Known Allergies Allergy Verified 04/08/20 11:47 - Acknowledgements Anesthesia Type Planned: Epidural Pt an Appropriate Candidate for the Planned Anesthesia: Yes Alternatives and Risks of Anesthesia Discussed w Pt/Guardian: Yes Pt/Guardian Understands and Agrees with Anesthesia Plan: Yes PreAnesthesia Questionnaire - Past Health History Medical/Surgical History: Denies 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: - HOME MEDS Home Medications: Home Meds Doxylamine Succinate/Vit B6 [Bonjesta ER 20-20 mg Tablet] 1 each PO DAILY 09/22/19 [History] Vits #93/Iron Fum/FA [ Formula Tablet] 1 each PO DAILY 09/22/19 [History] - CURRENT (IN HOUSE) MEDS Current Meds: Current Medications Butorphanol Tartrate (Stadol) 1 mg IVPUSH Q1H PRN PRN Reason: Pain Carboprost Tromethamine (Hemabate Ds) 250 mcg IM ASDIRECTED PRN PRN Reason: Post Hemorrhage Lactated Ringer's (Ringers, Lactated) 1,000 mls @ 150 mls/hr IV ASDIRECTED RICARDO Last Admin: 04/08/20 15:27 Dose: 150 mls/hr Documented by: Oxytocin/Sodium Chloride (Oxytocin 30 Unit/500 Ml-Ns) 30 unit in 500 mls @ 500 mls/hr IV [facility]RATE [facility] Tranexamic Acid 1,000 mg/ (Sodium Chloride) 110 mls @ 660 mls/hr IV ONETIME PRN PRN Reason: Bleeding Lidocaine HCl (Xylocaine 1%) 50 ml INJECT ONETIME PRN PRN Reason: Laceration repair Methylergonovine Maleate (Methergine) 0.2 mg IM ASDIRECTED PRN PRN Reason: Post Hemorrhage Misoprostol (Cytotec) 200 mcg PO ONETIME PRN PRN Reason: Post Hemorrhage Nalbuphine HCl (Nubain) 10 mg IVPUSH Q1H PRN PRN Reason: Pain (severe 7-10) Ondansetron HCl (Zofran) 4 mg IVPUSH Q4H PRN PRN Reason: Nausea/Vomiting Sodium Chloride (Saline Flush) 10 ml FLUSH ASDIRECTED PRN PRN Reason: Keep Vein Open Sodium Chloride (Saline Flush) 2.5 ml FLUSH ASDIRECTED PRN PRN Reason: Keep Vein Open Sodium Chloride (Normal Saline) 10 ml IV ASDIRECTED PRN PRN Reason: IV Use Sterile Water (Sterile Water For Irrigation) 1,000 ml IRR ASDIRECTED PRN PRN Reason: delivery Discontinued Medications Fentanyl (Sublimaze) Confirm Administered Dose 200 mcg .ROUTE .STK-MED ONE Stop: 04/08/20 14:44 Ropivacaine (Naropin 0.2%) Confirm Administered Dose 100 mls @ as directed .ROUTE .STClickSquared-MED ONE Stop: 04/08/20 14:44 Ropivacaine (Naropin 0.2%) Confirm Administered Dose 20 ml .ROUTE .STClickSquared-MED ONE Stop: 04/08/20 14:43
[2020-04-08] MEDS ORDERED: Oxytocin/0.9 % Sodium Chloride 30 UNIT/500 ML BAG ONE (16:21)
[2020-04-08] MEDS ORDERED: Misoprostol 25 MCG (1/4 of 100 MCG) Tab VAG PRN (18:29)
[2020-04-08] MEDS ORDERED: Terbutaline 1 MG/ML SDV SUBCUT PRN (18:29)
[2020-04-08] MEDS ORDERED: Lidocaine 1% 50 ML MDV ONE (18:55)
[2020-04-08] MEDS ORDERED: Morphine 2 MG/ML SYRINGE IVPUSH ONE (19:02)
[2020-04-08] MEDS ORDERED: Docusate Sodium 100 MG Cap PO PRN (19:16)
[2020-04-08] MEDS ORDERED: Ibuprofen 400 MG Tab PO PRN (19:16)
[2020-04-08] MEDS ORDERED: Benzocaine/Menthol 20%-0.5% Spray 78 GM Cannister TOP PRN (19:16)
[2020-04-08] MEDS ORDERED: Lanolin 100% Cream 7 GM Tube TOP PRN (19:16)
[2020-04-08] MEDS ORDERED: Bisacodyl 10 MG Supp RECTAL PRN (19:16)
[2020-04-08] MEDS ORDERED: Acetaminophen 500 MG Tab PO PRN ×2 (19:16)
[2020-04-08] MEDS ORDERED: Witch Hazel Medicated Pads 40/Jar TOP PRN (19:16)
[2020-04-08] MEDS ORDERED: Ibuprofen 800 MG Tab PO PRN (19:16)
[2020-04-08] MEDS ORDERED: oxyCODONE 5 MG Tab PO PRN (19:16)
--- NOTE | 2020-04-08 19:24 | PCM.DEL ---
L & D Note - General Info Date of Service: 04/08/20 Mother's Due Date: 04/26/20 - Delivery Note Labor: Spontaneous, Augmented by ARM, Augmented by Oxytocin Delivery Outcome: Livebirth Delivery Method: Spontaneous Vaginal Delivery-Single Presentation: Left Occiput Anterior (JYOTHI) Nuchal Cord: None Anesthesia Type: Epidural, Local, Other (see below) Local Anesthetic Volume: Other (15) Amniotic Fluid Description: Clear Episiotomy Type: None Laceration: Labial (left) Suture type: Vicryl Suture size: 3-0 Placenta: Intact, Spontaneous Cord: 3 Vessels Estimated Blood Loss: 150 Resuscitation Needed: No : Suctioned, Bulb Syringe, Melfa Used Score 1 min: 9 Score 5 min: 9 - General Info Date of Service: 04/08/20 Admission Dx/Problem (Free Text): Vaginal delivery Functional Status: Reports: Pain Controlled - Review of Systems General: Reports: No Symptoms HEENT: Reports: No Symptoms Pulmonary: Reports: No Symptoms Cardiovascular: Reports: No Symptoms Gastrointestinal: Reports: No Symptoms Genitourinary: Reports: No Symptoms Musculoskeletal: Reports: No Symptoms Skin: Reports: No Symptoms Neurological: Reports: No Symptoms Psychiatric: Reports: No Symptoms - Patient Data Weight - Most Recent: 195 lb Lab Results Last 24 Hours: Laboratory Results - last 24 hr 04/08/20 04/08/20 04/08/20 Range/Units 12:40 12:40 13:10 WBC 10.27 (4.0-11.0) K/uL RBC 4.44 (4.30-5.90) M/uL Hgb 11.9 L (12.0-16.0) g/dL Hct 37.0 (36.0-46.0) % MCV 83.3 (80.0-98.0) fL MCH 26.8 L (27.0-32.0) pg MCHC 32.2 (31.0-37.0) g/dL RDW Std Deviation 65.1 H (28.0-62.0) fl RDW Coeff of Rosy 22 H (11.0-15.0) % Plt Count 246 (150-400) K/uL MPV 10.60 (7.40-12.00) fL Nucleated RBC % 0.0 /100WBC Nucleated RBCs # 0 K/uL SARS-CoV-2 RNA (ABHILASH) NEGATIVE (NEGATIVE) Blood Type AB POSITIVE Antibody Screen NEGATIVE Med Orders - Current: Current Medications Acetaminophen (Tylenol Extra Strength) 500 mg PO Q4H PRN PRN Reason: Pain Acetaminophen (Tylenol Extra Strength) 1,000 mg PO Q4H PRN PRN Reason: Pain Benzocaine/Menthol (Dermoplast Pain Relief 20%-0.5% [place]) 78 gm TOP ASDIRECTED PRN PRN Reason: Perineal Comfort Measure Bisacodyl (Dulcolax) 10 mg RECTAL ONETIME PRN PRN Reason: Constipation Butorphanol Tartrate (Stadol) 1 mg IVPUSH Q1H PRN PRN Reason: Pain Carboprost Tromethamine (Hemabate Ds) 250 mcg IM ASDIRECTED PRN PRN Reason: Post Hemorrhage Docusate Sodium (Colace) 100 mg PO BID PRN PRN Reason: Constipation Emollient Ointment (Lansinoh Hpa) 0 gm TOP ASDIRECTED PRN PRN Reason: Sore Nipples Oxytocin/Sodium Chloride (Oxytocin 30 Unit/500 Ml-Ns) 30 unit in 500 mls @ 2 mls/hr IV TITRATE RICARDO; Protocol Last Titration: 04/08/20 18:46 Dose: 4 munits/min, 4 mls/hr Documented by: Lactated Ringer's (Ringers, Lactated) 1,000 mls @ 150 mls/hr IV ASDIRECTED RICARDO Last Admin: 04/08/20 15:27 Dose: 150 mls/hr Documented by: Oxytocin/Sodium Chloride (Oxytocin 30 Unit/500 Ml-Ns) 30 unit in 500 mls @ 500 mls/hr IV TITRATE RICARDO Tranexamic Acid 1,000 mg/ (Sodium Chloride) 110 mls @ 660 mls/hr IV ONETIME PRN PRN Reason: Bleeding Ibuprofen (Motrin) 400 mg PO Q4H PRN PRN Reason: Pain Ibuprofen (Motrin) 800 mg PO Q6H PRN PRN Reason: Pain Lidocaine HCl (Xylocaine 1%) 50 ml INJECT ONETIME PRN PRN Reason: Laceration repair Methylergonovine Maleate (Methergine) 0.2 mg IM ONETIME PRN PRN Reason: Excessive Vaginal Bleeding Methylergonovine Maleate (Methergine) 0.2 mg IM ASDIRECTED PRN PRN Reason: Post Hemorrhage Misoprostol (Cytotec) 25 mcg VAG ONETIME PRN PRN Reason: Cervical Ripening Misoprostol (Cytotec) 200 mcg PO ONETIME PRN PRN Reason: Post Hemorrhage Nalbuphine HCl (Nubain) 10 mg IVPUSH Q1H PRN PRN Reason: Pain (severe 7-10) Ondansetron HCl (Zofran) 4 mg IVPUSH Q4H PRN PRN Reason: Nausea/Vomiting Oxycodone HCl (Oxycodone) 5 mg PO Q2H PRN PRN Reason: Pain Sodium Chloride (Saline Flush) 10 ml FLUSH ASDIRECTED PRN PRN Reason: Keep Vein Open Sodium Chloride (Saline Flush) 2.5 ml FLUSH ASDIRECTED PRN PRN Reason: Keep Vein Open Sodium Chloride (Normal Saline) 10 ml IV ASDIRECTED PRN PRN Reason: IV Use Sterile Water (Sterile Water For Irrigation) 1,000 ml IRR ASDIRECTED PRN PRN Reason: delivery Terbutaline Sulfate (Brethine) 0.25 mg SUBCUT ASDIRECTED PRN PRN Reason: Tacysystole Witch Petty (Tucks) 1 pad TOP ASDIRECTED PRN PRN Reason: comfort care Discontinued Medications Fentanyl (Sublimaze) Confirm Administered Dose 200 mcg .ROUTE .STK-MED ONE Stop: 04/08/20 14:44 Oxytocin/Sodium Chloride (Oxytocin 30 Unit/500 Ml-Ns) Confirm Administered Dose 30 unit in 500 mls @ as directed .ROUTE .STK-MED ONE Stop: 04/08/20 16:22 Ropivacaine (Naropin 0.2%) Confirm Administered Dose 100 mls @ as directed .ROUTE .STK-MED ONE Stop: 04/08/20 14:44 Lidocaine HCl (Xylocaine 1%) Confirm Administered Dose 50 ml .ROUTE .STK-MED ONE Stop: 04/08/20 18:56 Morphine Sulfate (Morphine) 2 mg IVPUSH ONETIME ONE Stop: 04/08/20 19:03 Last Admin: 04/08/20 19:10 Dose: 2 mg Documented by: Ropivacaine (Naropin 0.2%) Confirm Administered Dose 20 ml .ROUTE .STK-MED ONE Stop: 04/08/20 14:43 - Exam General: Alert, Oriented HEENT: Pupils Equal, Pupils Reactive, EOMI, Mucous Membr. Moist/[place] Neck: Supple Lungs: Clear to Auscultation, Normal Respiratory Effort Cardiovascular: Regular Rate, Regular Rhythm GI/Abdominal Exam: Soft, No Organomegaly, No Distention, No Mass, Other (appropriately tender) (Female) Exam: Cervical Dilatation, Other (immediate post edema, left labial laceration repaired) Back Exam: Normal Inspection, Full Range of Motion Extremities: Normal Inspection, Normal Range of Motion, Non-Tender, No Pedal Edema, Normal Capillary Refill Skin: Warm, Dry, Intact Wound/Incisions: Healing Well Neurological: No New Focal Deficit Psy/Mental Status: Alert, Normal Affect, Normal Mood - Problem List & Annotations (1) Vaginal delivery SNOMED Code(s): 500583257 Code(s): O80 - ENCOUNTER FOR FULL-TERM UNCOMPLICATED DELIVERY Status: Acute Current Visit: Yes Onset Date: ~04/08/20 - Problem List Review Problem List Initiated/Reviewed/Updated: Yes - Assessment Assessment:: 37+3 delivered viable female , apgars 9 & 9. Left labial laceration repaired. Uterus firm. - Plan Plan:: 19 year old at 37w3d (BERNIE 04/26/2020 by 9w3d US) in spontaneous labor augmented by AROM and pitocin. * Routine pp cares * Rh positive, rubella immune, GBS negative * PO pain medication ordered PRN * Diet as tolerated * Encourage ambulation and fluid intake when able * , nursing assistance as needed Dispo: stable. Anticipate routine course.
--- NOTE | 2020-04-08 21:04 | OR ---
SURGEON: MADELEINE CSINEROS MD DATE OF PROCEDURE: 04/08/2020 PREOPERATIVE DIAGNOSES: 1. Term intrauterine at 37 weeks and 3 days. 2. Spontaneous labor. POSTOPERATIVE DIAGNOSES: 1. Term intrauterine at 37 weeks and 3 days. 2. Spontaneous labor. PROCEDURE: Spontaneous vaginal delivery. SURGEON: Madeleine Cisneros MD. MARKET RESEARCHER: Arline Banuelos MS-4 ANESTHESIA: Epidural, local anesthetic. COMPLICATIONS: None. ESTIMATED BLOOD LOSS: 150 mL. INDICATION: A 19-year-old 2, para 0-1-0-1 at 37 weeks and 3 days, in spontaneous labor. FINDINGS: Normal-appearing female infant in cephalic presentation. Clear amniotic fluid. scores 9 and 9. Weight and 2960 g. PROCEDURE IN DETAIL: The patient presented to Labor and Delivery on the afternoon of 04/08/2020 with a small amount of vaginal bleeding. She was noted to be 6 cm dilated at that time and was admitted for labor. She received an epidural shortly thereafter. Labor progressed spontaneously, until the patient was approximately 9 cm, at 1733. Artificial rupture of membranes was performed. The labor and then stalled out at that point in time, and 2 units of Pitocin were then initiated. Labor then progressed, and at approximately 1830, the patient was completely dilated and wanted to initiate pushing efforts. The patient pushed over 3 contractions with good efforts, and infant's head was delivered atraumatically, quickly followed by infant's shoulders and body. The was then placed on mother's chest, and nursing performed bulb suction to the nose and mouth. After approximately 60 seconds, the umbilical cord was clamped and cut. Arterial venous and cord blood gases were then obtained. The placenta was then expressed. Intact 3-vessel cord was noted. Inspection of the perineum was then performed and revealed a left labial laceration which was repaired in a running locked fashion with 3-0 Vicryl. Uterine fundus was noted to be firm and located below the umbilicus. EBL was 150 mL. The patient tolerated the delivery well, and mother and infant are recovering in Labor and Delivery room in stable condition. ASHISH / MATTYL /[id number]
--- NOTE | 2020-04-09 08:18 | PCM.PNPP ---
- General Info Date of Service: 04/09/20 Admission Dx/Problem (Free Text): Vaginal delivery Subjective Update: Resting comfortably in bed during rounds. Pain well controlled. Lochia decreasing. Ambulating and voiding without difficulty. Tolerating regular diet. , going well per patient. - General Info Date of Service: 04/09/20 - Patient Data Vital Signs - Most Recent: Last Vital Signs Temp 97.1 F 04/09/20 07:31 Pulse 73 04/09/20 07:31 Resp 17 04/09/20 07:31 BP 107/60 04/09/20 07:31 Pulse Ox 98 04/09/20 07:31 Weight - Most Recent: 195 lb Lab Results - Last 24 Hours: Laboratory Results - last 24 hr 04/08/20 04/08/20 04/08/20 Range/Units 12:40 12:40 13:10 WBC 10.27 (4.0-11.0) K/uL RBC 4.44 (4.30-5.90) M/uL Hgb 11.9 L (12.0-16.0) g/dL Hct 37.0 (36.0-46.0) % MCV 83.3 (80.0-98.0) fL MCH 26.8 L (27.0-32.0) pg MCHC 32.2 (31.0-37.0) g/dL RDW Std Deviation 65.1 H (28.0-62.0) fl RDW Coeff of Rosy 22 H (11.0-15.0) % Plt Count 246 (150-400) K/uL MPV 10.60 (7.40-12.00) fL Nucleated RBC % 0.0 /100WBC Nucleated RBCs # 0 K/uL Cord ABG pH (7.18-7.38) Cord ABG Base Excess (-10--2) Cord VBG pH (7.25-7.45) Cord VBG Base Excess (-10--2) SARS-CoV-2 RNA (ABHILASH) NEGATIVE (NEGATIVE) Blood Type AB POSITIVE Antibody Screen NEGATIVE 04/08/20 04/08/20 04/09/20 Range/Units 18:54 18:54 05:28 WBC (4.0-11.0) K/uL RBC (4.30-5.90) M/uL Hgb 11.3 L (12.0-16.0) g/dL Hct 35.4 L (36.0-46.0) % MCV (80.0-98.0) fL MCH (27.0-32.0) pg MCHC (31.0-37.0) g/dL RDW Std Deviation (28.0-62.0) fl RDW Coeff of Rosy (11.0-15.0) % Plt Count (150-400) K/uL MPV (7.40-12.00) fL Nucleated RBC % /100WBC Nucleated RBCs # K/uL Cord ABG pH 7.372 (7.18-7.38) Cord ABG Base Excess -2 (-10--2) Cord VBG pH 7.398 (7.25-7.45) Cord VBG Base Excess -1 H (-10--2) SARS-CoV-2 RNA (ABHILASH) (NEGATIVE) Blood Type Antibody Screen Med Orders - Current: Current Medications Acetaminophen (Tylenol Extra Strength) 500 mg PO Q4H PRN PRN Reason: Pain Acetaminophen (Tylenol Extra Strength) 1,000 mg PO Q4H PRN PRN Reason: Pain Benzocaine/Menthol (Dermoplast Pain Relief 20%-0.5% [place]) 78 gm TOP ASDIRECTED PRN PRN Reason: Perineal Comfort Measure Bisacodyl (Dulcolax) 10 mg RECTAL ONETIME PRN PRN Reason: Constipation Butorphanol Tartrate (Stadol) 1 mg IVPUSH Q1H PRN PRN Reason: Pain Carboprost Tromethamine (Hemabate Ds) 250 mcg IM ASDIRECTED PRN PRN Reason: Post Hemorrhage Docusate Sodium (Colace) 100 mg PO BID PRN PRN Reason: Constipation Emollient Ointment (Lansinoh Hpa) 0 gm TOP ASDIRECTED PRN PRN Reason: Sore Nipples Oxytocin/Sodium Chloride (Oxytocin 30 Unit/500 Ml-Ns) 30 unit in 500 mls @ 2 mls/hr IV TITRATE RICARDO; Protocol Last Titration: 04/08/20 18:56 Dose: 999 munits/min, 999 mls/hr Documented by: Lactated Ringer's (Ringers, Lactated) 1,000 mls @ 150 mls/hr IV ASDIRECTED RICARDO Last Admin: 04/08/20 15:27 Dose: 150 mls/hr Documented by: Oxytocin/Sodium Chloride (Oxytocin 30 Unit/500 Ml-Ns) 30 unit in 500 mls @ 500 mls/hr IV TITRATE [facility] Tranexamic Acid 1,000 mg/ (Sodium Chloride) 110 mls @ 660 mls/hr IV ONETIME PRN PRN Reason: Bleeding Ibuprofen (Motrin) 400 mg PO Q4H PRN PRN Reason: Pain Ibuprofen (Motrin) 800 mg PO Q6H PRN PRN Reason: Pain Last Admin: 04/09/20 04:35 Dose: 800 mg Documented by: Lidocaine HCl (Xylocaine 1%) 50 ml INJECT ONETIME PRN PRN Reason: Laceration repair Methylergonovine Maleate (Methergine) 0.2 mg IM ONETIME PRN PRN Reason: Excessive Vaginal Bleeding Methylergonovine Maleate (Methergine) 0.2 mg IM ASDIRECTED PRN PRN Reason: Post Hemorrhage Misoprostol (Cytotec) 25 mcg VAG ONETIME PRN PRN Reason: Cervical Ripening Misoprostol (Cytotec) 200 mcg PO ONETIME PRN PRN Reason: Post Hemorrhage Nalbuphine HCl (Nubain) 10 mg IVPUSH Q1H PRN PRN Reason: Pain (severe 7-10) Ondansetron HCl (Zofran) 4 mg IVPUSH Q4H PRN PRN Reason: Nausea/Vomiting Oxycodone HCl (Oxycodone) 5 mg PO Q2H PRN PRN Reason: Pain Sodium Chloride (Saline Flush) 10 ml FLUSH ASDIRECTED PRN PRN Reason: Keep Vein Open Sodium Chloride (Saline Flush) 2.5 ml FLUSH ASDIRECTED PRN PRN Reason: Keep Vein Open Sodium Chloride (Normal Saline) 10 ml IV ASDIRECTED PRN PRN Reason: IV Use Sterile Water (Sterile Water For Irrigation) 1,000 ml IRR ASDIRECTED PRN PRN Reason: delivery Terbutaline Sulfate (Brethine) 0.25 mg SUBCUT ASDIRECTED PRN PRN Reason: Tacysystole Witch Petty (Tucks) 1 pad TOP ASDIRECTED PRN PRN Reason: comfort care Discontinued Medications Fentanyl (Sublimaze) Confirm Administered Dose 200 mcg .ROUTE .STK-MED ONE Stop: 02/18/21 14:44 Oxytocin/Sodium Chloride (Oxytocin 30 Unit/500 Ml-Ns) Confirm Administered Dose 30 unit in 500 mls @ as directed .ROUTE .STK-MED ONE Stop: 04/08/20 16:22 Ropivacaine (Naropin 0.2%) Confirm Administered Dose 100 mls @ as directed .ROUTE .STK-MED ONE Stop: 04/08/20 14:44 Lidocaine HCl (Xylocaine 1%) Confirm Administered Dose 50 ml .ROUTE .STK-MED ONE Stop: 04/08/20 18:56 Morphine Sulfate (Morphine) 2 mg IVPUSH ONETIME ONE Stop: 04/08/20 19:03 Last Admin: 04/08/20 19:10 Dose: 2 mg Documented by: Ropivacaine (Naropin 0.2%) Confirm Administered Dose 20 ml .ROUTE .STK-MED ONE Stop: 04/08/20 14:43 - Interaction Infant Disposition, : at Bedside Feeding: Breastfed ; Nursed Well Support Person: Significant Other - Recovery Exam Fundal Tone: Firm Fundal Level: 1 Fingerbreadths Below Umbilicus Fundal Placement: Midline Lochia Amount: Scant Lochia Color: Rubra/Red Perineum Description: Intact, Minimal Bruising/Swelling Episiotomy/Laceration: Approximated Bladder Status: Voiding Urinary Elimination: Voided - Exam General: Alert Lungs: Normal Respiratory Effort Cardiovascular: Regular Rate GI/Abdominal Exam: Soft, Non-Tender Extremities: Normal Inspection, Normal Range of Motion, Non-Tender, Pedal Edema (trace) Skin: Warm, Dry, Intact Neurological: No New Focal Deficit Psy/Mental Status: Normal Mood - Problem List Review Problem List Initiated/Reviewed/Updated: Yes - My Orders Last 24 Hours: My Active Orders 04/08/20 12:26 Notify Provider [RC] PRN Butorphanol [Stadol] 1 mg IVPUSH Q1H PRN Carboprost Tromethamine [Hemabate DS] 250 mcg IM ASDIRECTED PRN Lidocaine 1% [Xylocaine 1%] 50 ml INJECT ONETIME PRN Methylergonovine [Methergine] 0.2 mg IM ASDIRECTED PRN Nalbuphine [Nubain] 10 mg IVPUSH Q1H PRN Ondansetron [Zofran] 4 mg IVPUSH Q4H PRN Sodium Chloride 0.9% [Normal Saline] 10 ml IV ASDIRECTED PRN Sodium Chloride 0.9% [Saline Flush] 10 ml FLUSH ASDIRECTED PRN Sodium Chloride 0.9% [Saline Flush] 2.5 ml FLUSH ASDIRECTED PRN Tranexamic Acid [Cyklokapron] 1,000 mg Sodium Chloride 0.9% [Normal Saline] 100 ml IV ONETIME Water For Irrigation,Sterile [Sterile Water for Irrigation] 1,000 ml IRR ASDIRECTED PRN miSOPROStoL [Cytotec] 200 mcg PO ONETIME PRN Scalp Electrode [WOMSER] Per Unit Routine Peripheral IV Insertion Adult [OM.PC] Routine 04/08/20 12:30 Lactated Ringers [Ringers, Lactated] 1,000 ml IV ASDIRECTED Oxytocin/0.9 % Sodium Chloride [Oxytocin 30 Unit/500 ML-NS] 30 unit in 500 ml IV TITRATE 04/08/20 12:40 RPR (SYPHILIS SERO) W/ RFLX [REF] Routine 04/08/20 18:29 Bedrest Bathroom Privileges [RC] ASDIRECTED Notify Provider [RC] PRN Terbutaline [Brethine] 0.25 mg SUBCUT ASDIRECTED PRN miSOPROStoL [Cytotec] 25 mcg VAG ONETIME PRN 04/08/20 18:30 Oxytocin/0.9 % Sodium Chloride [Oxytocin 30 Unit/500 ML-NS] 30 unit in 500 ml IV TITRATE Medication Administration Instruction [OM.PC] Q3H 04/08/20 19:16 Patient Status [ADT] Routine May Shower [RC] ASDIRECTED Up ad Janina [RC] ASDIRECTED Vital Signs [RC] PER UNIT ROUTINE Acetaminophen [Tylenol Extra Strength] 1,000 mg PO Q4H PRN Acetaminophen [Tylenol Extra Strength] 500 mg PO Q4H PRN Benzocaine/Menthol [Dermoplast Pain Relief 20%-0.5% [place]] 78 gm TOP ASDI RECTED PRN Docusate Sodium [Colace] 100 mg PO BID PRN Ibuprofen [Motrin] 400 mg PO Q4H PRN Ibuprofen [Motrin] 800 mg PO Q6H PRN Lanolin [Lansinoh HPA] See Dose Instructions TOP ASDIRECTED PRN Methylergonovine [Methergine] 0.2 mg IM ONETIME PRN bisacodyL [Dulcolax] 10 mg RECTAL ONETIME PRN oxyCODONE 5 mg PO Q2H PRN sage Short [Tucks] 1 pad TOP ASDIRECTED PRN Assess Lochia [WOMSER] Per Unit Routine Assess Uterine Involution [WOMSER] Per Unit Routine Peripheral IV Discontinue [OM.PC] Routine 04/09/20 07:12 Ready for Discharge [RC] PER UNIT ROUTINE - Assessment Assessment:: 19 year old PPD1 s/p - Plan Plan:: Routine cares * Rh positive, rubella immune, GBS negative * PO pain medication ordered PRN * Diet as tolerated * Encourage ambulation and fluid intake when able * , nursing assistance as needed * Reviewed options for contraception , interested in minipill vs. Depo provera. Dispo: stable. Anticipate discharge today pending maternal/ status. Reviewed discharge instructions including to notify clinic with temperature >100.4, intractable nausea/vomiting, pain not controlled with Tylenol or Ibuprofen or heavy vaginal bleeding. Advised nothing per vagina for 6 weeks.
== END 2020-04-09 21:25 | disposition home or self-care (01) | DRG 807 ==
LOC: MW.OBCHECK 11:35 → MW.OB 11:40 → MW.OBCHECK 19:01 → OBSVTOIN 19:16 → MW.OB 22:00
PROVIDERS: ADMIT Obstetrics & Gynecology; ATTEND Obstetrics & Gynecology
PROC: 10E0XZZ Delivery of Products of Conception, External Approach (ICD-10-PCS; principal; 2020-04-08)
PROC: 10907ZC Drainage of Amniotic Fluid, Therapeutic from Products of Conception, Via Natural or Artificial Opening (ICD-10-PCS; 2020-04-08)
PROC: 0UQMXZZ Repair Vulva, External Approach (ICD-10-PCS; 2020-04-08)
PROC: 3E0R3BZ Introduction of Anesthetic Agent into Spinal Canal, Percutaneous Approach (ICD-10-PCS; 2020-04-08)
DX: O70.0 First degree perineal laceration during delivery (principal); Z37.0 Single live birth; Z3A.37 37 weeks gestation of pregnancy; Z20.822 Contact with and (suspected) exposure to COVID-19
CPT/HCPCS: 36415; 51702; 59025; 59409; 82803; 85014; 85018; 85027; 86592; 86850; 86900; 86901; A9270-GY; J2270; J2590; J2795; J3010; J7120; U0002

== ENCOUNTER 2020-05-03 10:14 | Emergency (ER) | payer OTHER ==
[2020-05-03] MEDS ORDERED: Sodium Chloride 0.9% 10 ML Syringe FLUSH PRN (10:38)
[2020-05-03] MEDS ORDERED: Sodium Chloride 0.9% 2.5 ML Syringe FLUSH PRN (10:38)
[2020-05-03] MEDS ORDERED: Ketorolac 30 MG/ML SDV IVPUSH ONE (10:39)
--- NOTE | 2020-05-03 10:41 | EDM.PDOC ---
ED HPI GENERAL MEDICAL PROBLEM - General Chief Complaint: Chest Pain Stated Complaint: CHEST PAIN Time Seen by Provider: 05/03/20 10:30 - History of Present Illness INITIAL COMMENTS - FREE TEXT/NARRATIVE: History of present illness: [] Is here for chest pain. At 645 yesterday he had a sharp pain in the anterior chest and felt like she could not move because it would hurt. She also had pain when she breathes. It happened again during the night but she waited until morning to come in and it was happening again this morning. She has a sharp pain in the anterior chest and the upper part of the sternum. Its worse when she breathes or moves. Its short lived and episodic. The patient is recent . Breast-feeding. She has not started contraception. She is a non-smoker. She is not treated for diabetes blood p ressure or cholesterol. She has a negative family history of coronary vessel disease or stroke. She has not been immobilized lately and has been very active. Review of systems: As per history of present illness and below otherwise all systems reviewed and negative. Past medical history: As per history of present illness and as reviewed below otherwise noncontributory. Surgical history: As per history of present illness and as reviewed below otherwise noncontributory. Social history: No reported history of drug or alcohol abuse. Family history: As per history of present illness and as reviewed below otherwise noncontributory. Physical exam: Constitutional - well developed, well-nourished and in no acute distress HEENT - normocephalic, no evidence of trauma - external nose and mouth normal - no mass in neck and no JVD - mucosae moist EYES - full EOM, PERRL, no icterus - no evidence of inflammation, injection, or drainage Respiratory - no respiratory distress, equal bilateral expansion, lungs clear to auscultation and no abnormal lung sounds Cardiovascular - Regular Rhythm with S1 and S2 appreciated and no murmur, gallop or rub. GI - abdomen soft without distension or organomegaly - normal bowel sounds - no guard or rebound Musculoskeletal no gross deformity of long bones or joints - no tenderness, swelling or edema Neurologic - Alert and oriented times four - CN II-XII grossly intact - motor sensory and coordination symmetrically normal Psychiatric - appropriate mood and affect with normal thought content Hematologic - No petechiae or purpura - mucosa appropriate color and sclera not pale - normal nail bed color and refill Integument - no rash or evidence of trauma - normal turgor Diagnostics: [] Therapeutics: [] Impression: [] Plan: [] Definitive disposition and diagnosis as appropriate pending reevaluation and review of above. 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 ED EXAM, GENERAL - Physical Exam Exam: See Below Free Text/Narrative:: My physical exam is in the HPI #1 Interpretation EKG Interpretation Comments: EKG sinus rhythm heart rate 72 [place] [address] and T impression normal EKG Course - Vital Signs Last Recorded V/S: Last Vital Signs Temp 35.6 C L 05/03/20 10:33 Pulse 74 05/03/20 10:33 Resp 16 05/03/20 10:33 BP 105/67 05/03/20 10:33 Pulse Ox 98 05/03/20 10:33 - Orders/Labs/Meds Orders: Active Orders 24 hr Category Date Time Status EKG Documentation Completion [RC] AM Care 05/03/20 10:38 Active Sodium Chloride 0.9% [Saline Flush] Med 05/03/20 10:38 Active 10 ml FLUSH ASDIRECTED PRN Sodium Chloride 0.9% [Saline Flush] Med 05/03/20 10:38 Active 2.5 ml FLUSH ASDIRECTED PRN Saline Lock Insert [OM.PC] Stat Oth 05/03/20 10:38 Ordered Medication Orders Sodium Chloride (Sodium Chloride 0.9% 10 Ml Syringe) 10 ml FLUSH ASDIRECTED PRN PRN Reason: Keep Vein Open Last Admin: 05/03/20 10:58 Dose: 10 ml Documented by: KLEIJOC Sodium Chloride (Sodium Chloride 0.9% 2.5 Ml Syringe) 2.5 ml FLUSH ASDIRECTED PRN PRN Reason: Keep Vein Open Last Admin: 05/03/20 10:59 Dose: 2.5 ml Documented by: LYNDSEY Labs: Laboratory Tests 05/03/20 05/03/20 05/03/20 Range/Units 10:30 10:30 10:30 WBC 11.61 H (4.0-11.0) K/uL RBC 4.99 (4.30-5.90) M/uL Hgb 13.6 (12.0-16.0) g/dL Hct 41.8 (36.0-46.0) % MCV 83.8 (80.0-98.0) fL MCH 27.3 (27.0-32.0) pg MCHC 32.5 (31.0-37.0) g/dL RDW Std Deviation 64.8 H (28.0-62.0) fl RDW Coeff of Rosy 21 H (11.0-15.0) % Plt Count 323 (150-400) K/uL MPV 9.80 (7.40-12.00) fL Neut % (Auto) 76.3 (48.0-80.0) % Lymph % (Auto) 15.8 L (16.0-40.0) % Henry % (Auto) 5.4 (0.0-15.0) % Eos % (Auto) 2.3 (0.0-7.0) % Baso % (Auto) 0.2 (0.0-1.5) % Neut # (Auto) 8.9 H (1.4-5.7) K/uL Lymph # (Auto) 1.8 (0.6-2.4) K/uL Henry # (Auto) 0.6 (0.0-0.8) K/uL Eos # (Auto) 0.3 (0.0-0.7) K/uL Baso # (Auto) 0.0 (0.0-0.1) K/uL Nucleated RBC % 0.0 /100WBC Nucleated RBCs # 0 K/uL D-Dimer, Quantitative 0.19 (0.0-0.50) mg/L FEU Sodium 140 (136-145) mmol/L Potassium 3.7 (3.5-5.1) mmol/L Chloride 104 (98-107) mmol/L Carbon Dioxide 25.7 (21.0-32.0) mmol/L BUN 7 (7.0-18.0) mg/dL Creatinine 0.7 (0.6-1.0) mg/dL Est Cr Clr Drug Dosing 112.91 mL/min Estimated GFR (MDRD) > 60.0 ml/min Glucose 104 (74-106) mg/dL Calcium 8.7 (8.5-10.1) mg/dL Troponin I < 0.050 (0.000-0.056) ng/mL Meds: Medications Generic Name Dose Route Start Last Admin Trade Name Freq PRN Reason Stop Dose Admin Sodium Chloride 10 ml 05/03/20 10:38 05/03/20 10:58 Sodium Chloride 0.9% 10 Ml Syringe FLUSH 10 ml ASDIRECTED PRN Administration Keep Vein Open Sodium Chloride 2.5 ml 05/03/20 10:38 05/03/20 10:59 Sodium Chloride 0.9% 2.5 Ml Syringe FLUSH 2.5 ml ASDIRECTED PRN Administration Keep Vein Open Discontinued Medications Generic Name Dose Route Start Last Admin Trade Name Freq PRN Reason Stop Dose Admin Ketorolac Tromethamine 15 mg 05/03/20 10:39 05/03/20 10:57 Ketorolac 30 Mg/Ml Sdv IVPUSH 05/03/20 10:40 15 mg ONETIME ONE Administration Departure - Departure Time of Disposition: 11:17 Disposition: Home, Self-Care 01 Condition: Good Clinical Impression: Pleurisy - Discharge Information Instructions: Pleurisy, [id number] Forms: ED Department Discharge Additional Instructions: [facility] [address] [place] [id number] [id number] The following information is given to patients seen in the emergency department who are being discharged to home. This information is to outline your options for follow-up care. We provide all patients seen in our emergency department with a follow-up referral. The need for follow-up, as well as the timing and circumstances, are variable depending upon the specifics of your emergency department visit. If you don't have a primary care physician on staff, we will provide you with a referral. We always advise you to contact your personal physician following an emergency department visit to inform them of the circumstance of the visit and for follow-up with them and/or the need for any referrals to a consulting specialist. The emergency department will also refer you to a specialist when appropriate. This referral assures that you have the opportunity for follow-up care with a specialist. All of these measure are taken in an effort to provide you with optimal care, which includes your follow-up. Under all circumstances we always encourage you to contact your private physician who remains a resource for coordinating your care. When calling for follow-up care, please make the office aware that this follow-up is from your recent emergency room visit. If for any reason you are refused follow-up, please contact the [facility] Emergency Department at and asked to speak to the emergency department charge nurse. Sepsis Event Note (ED) - Evaluation Sepsis Screening Result: No Definite Risk - Focused Exam Vital Signs: Vital Signs Temp Pulse Resp BP Pulse Ox 05/03/20 10:33 35.6 C L 74 16 105/67 98 - My Orders Last 24 Hours: My Active Orders 05/03/20 10:38 EKG Documentation Completion [RC] AM Sodium Chloride 0.9% [Saline Flush] 10 ml FLUSH ASDIRECTED PRN Sodium Chloride 0.9% [Saline Flush] 2.5 ml FLUSH ASDIRECTED PRN Saline Lock Insert [OM.PC] Stat - Assessment/Plan Last 24 Hours: My Active Orders 05/03/20 10:38 EKG Documentation Completion [RC] AM Sodium Chloride 0.9% [Saline Flush] 10 ml FLUSH ASDIRECTED PRN Sodium Chloride 0.9% [Saline Flush] 2.5 ml FLUSH ASDIRECTED PRN Saline Lock Insert [OM.PC] Stat
[2020-05-03 11:01] LABS: BLOOD UREA NITROGEN,BUN 7 mg/dL (7.0-18.0); CARBON DIOXIDE,CO2 25.7 mmol/L (21.0-32.0); CHLORIDE,CL 104 mmol/L (98-107); GLUCOSE RANDOM 104 mg/dL (74-106); POTASSIUM,K 3.7 mmol/L (3.5-5.1); SODIUM,NA 140 mmol/L (136-145)
--- NOTE | 2020-05-03 11:13 | CR ---
Indication: Chest pain Comparison: None available. Technique: Single AP view chest Findings: There is no focal consolidation, effusion, or pneumothorax. The cardiomediastinal silhouette is within normal limits. The bony thorax is grossly intact. Impression: No acute cardiopulmonary abnormality. Dictated by Eriberot Posey MD @ May 03 2020 11:10AM Signed by Dr. Eriberto Posey @ May 03 2020 11:10AM
== END 2020-05-03 11:39 | disposition home or self-care (01) ==
LOC: MW.ED 10:14
DX: R09.1 Pleurisy (principal)
CPT/HCPCS: 36415; 71045; 80048; 84484; 85025; 85379; 96374; 99285; J1885; 93010; 99283

== ENCOUNTER 2022-10-15 04:51 | Emergency (ER) | payer OTHER ==
[2022-10-15] MEDS ORDERED: Lidocaine 1% 5 ML VIAL ONE (05:00)
[2022-10-15] MEDS ORDERED: Ibuprofen 400 MG Tab PO ONE (05:00)
== END 2022-10-15 06:07 | disposition home or self-care (01) ==
LOC: MW.ED 04:51
DX: H69.81 Other specified disorders of Eustachian tube, right ear (principal); J00 Acute nasopharyngitis [common cold]
CPT/HCPCS: 87635; 87651; 99283; A9270; J3490; U0002

== ENCOUNTER 2022-11-09 11:54 | Emergency (ER) | payer OTHER ==
[2022-11-09] MEDS ORDERED: Acetaminophen 500 MG Tab PO STA (13:34)
[2022-11-09] MEDS ORDERED: Ibuprofen 600 MG Tab PO STA (13:34)
[2022-11-09 13:38] LABS: CORONAVIRUS COVID-19 NAA NEGATIVE (NEGATIVE); INFLUENZA A NAA NEGATIVE (NEGATIVE); INFLUENZA B NAA NEGATIVE (NEGATIVE); RESPIRATORY SYNCYTIAL VIR NAA NEGATIVE (NEGATIVE)
[2022-11-09 14:06] LABS: BILIRUBIN,URINE NEGATIVE (NEGATIVE); COLOR,URINE YELLOW; GLUCOSE,URINE NEGATIVE (NEGATIVE); KETONES,URINE TRACE mg/dL (NEGATIVE); LEUKOCYTE ESTERASE,URINE SMALL (NEGATIVE); NITRITE,URINE NEGATIVE (NEGATIVE); OCCULT BLOOD,URINE SMALL (NEGATIVE); PROTEIN,URINE 30 mg/dL (NEGATIVE); UROBILINOGEN,URINE 0.2 EU/dL (<2.0)
[2022-11-09 14:07] LABS: APPEARANCE,URINE HAZY
[2022-11-09 14:16] LABS: BACTERIA,URINE 2+ (NEGATIVE); MUCUS,URINE LIGHT (NONE-MOD); SQUAMOUS EPITHELIAL CELLS,UR MANY
[2022-11-09] MEDS ORDERED: cefTRIAXone 1 GM Vial IM STA (14:39)
[2022-11-09] MEDS ORDERED: Lidocaine 1% 2 ML ONE (14:56)
== END 2022-11-09 15:21 | disposition home or self-care (01) ==
LOC: MW.ED 11:54
DX: N39.0 Urinary tract infection, site not specified (principal); Z20.822 Contact with and (suspected) exposure to COVID-19
CPT/HCPCS: 0241U; 81001; 81025; 87086; 96372; 99284; A9270; J0696; 99283; J3490

== ENCOUNTER 2023-05-05 23:26 | Emergency (ER) | payer BC | END 2023-05-05 23:50 | disposition home or self-care (01) | LOC: MW.ED 23:26 | DX: L03.211 Cellulitis of face (principal); Z79.899 Other long term (current) drug therapy | CPT/HCPCS: 99283 ==

== ENCOUNTER 2023-05-27 21:10 | Emergency (ER) | payer BC ==
[2023-05-27] MEDS ORDERED: Naloxone 0.4 MG/ML SDV IVPUSH PRN (21:22)
[2023-05-27] MEDS: Sodium Chloride 0.9% 1,000 ML IV ONE (21:28)
[2023-05-27] MEDS: Ondansetron 4 MG/2 ML SDV IVPUSH ONE (21:29)
[2023-05-27] MEDS: Lidocaine/Epineph/Tetracaine 3 ML Syringe TOP ONE (21:29)
[2023-05-27] MEDS: Morphine 4 MG/ML Syringe IVPUSH ONE (21:29)
[2023-05-27 21:44] LABS: BASOPHILS ABSOLUTE AUTO 0.02 K/uL (0.00-0.20); BASOPHILS PERCENT AUTO 0.3 % (0.0-1.0); EOSINOPHILS ABSOLUTE AUTO 0.21 K/uL (0.00-0.45); EOSINOPHILS PERCENT AUTO 3.3 % (0.0-6.0); HEMATOCRIT 38.9 % (37.0-47.0); HEMOGLOBIN 13.7 g/dL (12.0-16.0); IMMATURE GRAN ABSOLUTE AUTO 0.01 K/uL (0.00-0.05); IMMATURE GRAN PERCENT AUTO 0.2 % (0.0-0.4); LYMPHOCYTES ABSOLUTE AUTO 3.38 K/uL (1.00-4.80); LYMPHOCYTES PERCENT AUTO 53.7 % (24.0-44.0); MEAN CORPUSCULAR HGB CONC 35.2 g/dL (32.0-36.0); MEAN CORPUSCULAR VOLUME 85.1 fL (83.0-99.0); MEAN PLATELET VOLUME 8.9 fL (9.4-12.3); MONOCYTES ABSOLUTE AUTO 0.49 K/uL (0.00-0.80); MONOCYTES PERCENT AUTO 7.8 % (0.0-8.0); NEUTROPHILS ABSOLUTE AUTO 2.19 K/uL (1.80-7.70); NEUTROPHILS PERCENT AUTO 34.7 % (41.0-71.0); PLATELET COUNT,PLT 272 K/uL (150-400); RED BLOOD CELL COUNT 4.57 M/uL (4.10-5.30)
[2023-05-27] MEDS: Morphine 2 MG/ML SYRINGE IVPUSH ONE (21:58)
[2023-05-27 22:01] LABS: BLOOD UREA NITROGEN,BUN 9 mg/dL (7.0-18.0); CALCIUM 9.1 mg/dL (8.5-10.1); CARBON DIOXIDE,CO2 25.2 mmol/L (21.0-32.0); CHLORIDE,CL 103 mmol/L (98-107); CREATININE 0.7 mg/dL (0.6-1.0); GLUCOSE RANDOM 133 mg/dL (74-106); POTASSIUM,K 3.5 mmol/L (3.5-5.1); SODIUM,NA 137 mmol/L (136-145)
[2023-05-27 22:02] LABS: ESTIMATED GFR 125 mL/min (>60)
[2023-05-27] MEDS: Lidocaine 1% 5 ML VIAL INJECT ONE (23:54)
[2023-05-27] MEDS: Bupivacaine 0.5% 10 ML SDV INJECT ONE (23:54)
== END 2023-05-28 01:54 | disposition home or self-care (01) ==
LOC: MW.ED 21:10
DX: S06.0X0A Concussion without loss of consciousness, initial encounter (principal); S01.511A Laceration without foreign body of lip, initial encounter; Y04.8XXA Assault by other bodily force, initial encounter
CPT/HCPCS: 12011; 36415; 70450; 70486; 72125; 80048; 84703; 85025; 96374; 96375; 99284; A9270; J0665; J2270; J2405; J7030; J3490

== ENCOUNTER 2023-08-27 13:50 | Emergency (ER) | payer SELFPAY ==
[2023-08-27 14:36] LABS: BASOPHILS ABSOLUTE AUTO 0.02 K/uL (0.00-0.20); BASOPHILS PERCENT AUTO 0.2 % (0.0-1.0); EOSINOPHILS ABSOLUTE AUTO 0.07 K/uL (0.00-0.45); EOSINOPHILS PERCENT AUTO 0.7 % (0.0-6.0); HEMATOCRIT 39.7 % (37.0-47.0); HEMOGLOBIN 13.6 g/dL (12.0-16.0); IMMATURE GRAN ABSOLUTE AUTO 0.02 K/uL (0.00-0.05); IMMATURE GRAN PERCENT AUTO 0.2 % (0.0-0.4); LYMPHOCYTES ABSOLUTE AUTO 1.98 K/uL (1.00-4.80); MEAN CORPUSCULAR HEMOGLOBIN 29.4 pg (28.0-32.0); MEAN CORPUSCULAR HGB CONC 34.3 g/dL (32.0-36.0); MEAN CORPUSCULAR VOLUME 85.9 fL (83.0-99.0); MEAN PLATELET VOLUME 9.1 fL (9.4-12.3); MONOCYTES ABSOLUTE AUTO 0.75 K/uL (0.00-0.80); MONOCYTES PERCENT AUTO 7.2 % (0.0-8.0); NEUTROPHILS ABSOLUTE AUTO 7.58 K/uL (1.80-7.70); NEUTROPHILS PERCENT AUTO 72.7 % (41.0-71.0); PLATELET COUNT,PLT 263 K/uL (150-400); RED BLOOD CELL COUNT 4.62 M/uL (4.10-5.30); WHITE BLOOD CELL COUNT,WBC 10.42 K/uL (3.9-11.3)
[2023-08-27 15:37] LABS: A/G RATIO 1.1 (0.9-1.6); ALANINE AMINOTRANSFERASE,ALT 23 IU/L (14-63); ALBUMIN 3.8 g/dL (3.4-5.0); ALKALINE PHOSPHATASE 71 U/L (46-116); ASPARTATE AMNIOTRANSFERASE,AST 12 IU/L (15-37); BILIRUBIN TOTAL 0.9 mg/dL (0.2-1.0); BLOOD UREA NITROGEN,BUN 10 mg/dL (7.0-18.0); CALCIUM 8.9 mg/dL (8.5-10.1); CARBON DIOXIDE,CO2 27.1 mmol/L (21.0-32.0); CHLORIDE,CL 102 mmol/L (98-107); CREATININE 0.8 mg/dL (0.6-1.0); EST CRCL DRUG DOSING (CG) 101.51 mL/min; GLUCOSE RANDOM 83 mg/dL (74-106); POTASSIUM,K 3.6 mmol/L (3.5-5.1); PROTEIN TOTAL,TP 7.3 g/dL (6.4-8.2); SODIUM,NA 138 mmol/L (136-145)
[2023-08-27 15:47] LABS: ESTIMATED GFR 105 mL/min (>60)
[2023-08-27] MEDS: Ibuprofen 400 MG Tab PO ONE (15:50)
[2023-08-27] MEDS: Lidocaine/Epineph/Tetracaine 3 ML Syringe TOP ONE (15:50)
[2023-08-27] MEDS: Lidocaine 4% 1 each Patch TOP STA (15:50)
[2023-08-27] MEDS: Lidocaine 1% with EPINEPHrine 1:100,000 10 ML MDV INJECT ONE (17:18)
== END 2023-08-27 17:54 | disposition home or self-care (01) ==
LOC: MW.ED 13:50
DX: R07.9 Chest pain, unspecified (principal); L02.91 Cutaneous abscess, unspecified; Z79.899 Other long term (current) drug therapy
CPT/HCPCS: 36415; 71045; 80053; 84484; 84703; 85025; 85379; 99285; A9270; 93005; 93010; 99283; J3490